=== PATIENT | female | born 1975 | race Caucasian/White ===

== ENCOUNTER 2017-11-11 09:30 | Outpatient (RCR) | payer OTHER, SELFPAY ==
--- NOTE | 2017-11-09 13:27 | HP.PTEVAL_ITS ---
Patient's Visit Information VELIA STEINBERG is a 42 year old F referred to Physical Therapy by Raheem Hendricks MD with a diagnosis of S/P R hip. Date of Evaluation: 11/09/17 Physical Therapist: Ebenezer Valdovinos PT, - Visit Plan Frequency: 1x/Week Duration: 3 Weeks Plan: Follow protocal for MAISHA. R LE stretching and strengthening, balance and proprio, core strengthening, nustep, and HEP - Subjective Subjective: DOS: 11/02/17. Pt reports she had a chronic Hx of R hip pain prior to this procedure. Pt reports the surgeon surgically dislocated her hip, reshaped her femoral head, cleaned out a labral tear, and then put her hip back together. Pt reports she is getting better each day. No R LE T or N at this time. Pt reports she is still sleeping in a recliner as she is not able to sleep in her bed yet. Pt reports she is able to negotiate stairs one at a time as she has 4 [address] into [place] home. 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 1/10 at rest, 5/10 at worst (increased walking) - Pain R hip Pain Intensity (Out of 10): 1 Pain Intensity Range: 5 - Objective Neuro: B LE sensation is WNL to light touch. B patellar tendon reflex= 1/3. MMT : L LE is grossly 5/5 throughout. R LE is grossly 3+/5 throughout. Gait: Pt was able to ambulate greater than 1000 feet with 2 crutches and no difficulty - Goals Goal 1:: Decrease R hip pain x 50% to aid with sleep diff Goal Time Frame: 2-4 Weeks Goal 2:: Increase R hip strength x 1 grade to aid with stair negotiation Goal Time Frame: 2-4 Weeks Goal 3:: Pt will be able to reciprocally negotiate 10 stairs to aid with community ambulation Goal Time Frame: 2-4 Weeks Goal 4:: I with HEP Goal Time Frame: 2-4 Weeks - Rehabilitation Potential Physical Therapy Diagnosis: R hip pain, weakness, and diff with stair negotiation secondary to R hip labral repair and joint debridement Rehabilitation Potential: Good - Anticipated Interventions Patient/Client Instruction: Educate patient on: Condition, Plan of Care For the Purpose of:: To improve self management Therapeutic Exercise to Include: Strength training, Endurance training, Balance training, Gait and locomotor training, Dynamic Lumbar Stabilization For the Purpose of:: To decrease pain, To improve muscle performance and motor function, To increase tolerance to activity/condition/position Cryotherapy (ice pack, ice massage): Yes For the Purpose of:: To decrease pain Thank you for the opportunity to evaluate your patient. For Medicare and Medicare HMO plans, please review the plan of care and approve it. It will need to be FAXED BACK to us at [phone] for Medicare purposes. Please let me know if there are questions or concerns regarding this plan of care. Physician Signature: Date:
--- NOTE | 2017-12-30 07:50 | HP.PT.NRP ---
HP - Discharge Summary (1) - Patient Information VELIA STEINBERG was seen in my office for initial evaluation on 11/09/17. The following Plan of Care was established for this patient: Initial Frequency: 1x/Week Initial Duration: 3 Weeks - Anticipated Interventions Patient/Client Instruction: Educate patient on: Condition, Plan of Care For the Purpose of:: To improve self management Therapeutic Exercise to Include: Strength training, Endurance training, Balance training, Gait and locomotor training, Dynamic Lumbar Stabilization For the Purpose of:: To decrease pain, To improve muscle performance and motor function, To increase tolerance to activity/condition/position Cryotherapy (ice pack, ice massage): Yes For the Purpose of:: To decrease pain This patient was last seen in our office . Pertinent comments regarding their Physical therapy will appear below: Pt was last treated on 11/11/17 for her R MAISHA. Pt has not returned through todays date, and is therefore discontinued at this time. At this point I will be discontinuing this patient from physical therapy. I would be happy to see this patient again in the future if found appropriate by the physician. Thank you! Ebenezer Valdovinos, PT,
== END 2017-11-11 19:00 | disposition home or self-care (01) ==
LOC: PT 09:30
PROVIDERS: Family Provider Family Medicine; PCP Family Medicine; Visit Provider Specialist
DX: M16.11 Unilateral primary osteoarthritis, right hip (principal)
CPT/HCPCS: 97110; 97161

== ENCOUNTER 2019-03-14 04:24 | Emergency (ER) | payer OTHER, SELFPAY ==
[2019-03-14 04:25] VITALS: BP 134/81; PULSE 89; RESP 18; TEMP 36.8; O2SAT 98; BMI 40.4
[2019-03-14] MEDS: DiphenhydrAMINE 50 MG/ML Syringe 25 MG IV (04:53)
[2019-03-14] MEDS: Ketorolac 30 MG/ML Syringe IV (04:54)
[2019-03-14] MEDS: Metoclopramide 10 MG/2 ML Vial IV (04:55)
[2019-03-14] MEDS: 0.9% Normal Saline 1,000 ML 999 ML IV (05:02)
--- NOTE | 2019-03-14 05:21 | ED.DCSUM_ITS ---
- ER Visit Summary Date of Service: 03/14/19 Chief Complaint: Headache History of Present Illness: The patient is a 43 F who presents the emergency department with a headache. She states that it woke her up at 030 0 hours. He has a history of migraines and took her triptan. Unfortunately she vomited shor tly thereafter and is not sure how much absorbed. She describes a headache in frontal nature radiating back on the sides of her head towards her neck. She notes light sensitivity. She has a long history of migraines and would prefer to avoid CT scan if necessary. She denies any loss of sensation of extremities or muscle weakness. No speech difficulties. She denies any visual disturbances. No recent illnesses. No rashes. Physical Examination: Afebrile vital signs are stable Gen: Well-nourished well-developed Head: Normocephalic atraumatic Eyes: Perrl EOMI mild light sensitivity ENT: TMs clear no rhinorrhea moist mucous membranes Neck: Supple no lymphadenopathy no JVD nontender CVS: Regular rate rhythm no murmurs normal S1-S2 Respiratory: No distress clear to auscultation bilaterally chest nontender Abdomen: Soft nontender nondistended normal bowel sounds no masses Back: Nontender Extremity: Nontender no edema Skin: Normal color no rash Neuro: alert orientated ?3 CN II-XII intact normal strength sensation reflexes cerebellar Psych: Normal affect normal mood Emergency Department Course and Treatment: Patient received IV fluids, Toradol, Reglan, and Benadryl. Upon reassessment patient states that she is significantly improved and is happy to call for a ride. Patient advised to return if worsening or concerns Impression: 1. Acute migraine headache This note was generated with [employer] dictation software. It may contain incorrect words, spelling, and punctuation that were not noted in review of the chart prior to signing ED Disposition - Plan for ED Patient: Disposition: Home or Assisted Living Instructions: ED, Migraine (Classical) Referrals: Kyle Roach MD [Primary Care Provider] - As Needed
[2019-03-14 05:53] VITALS: BP 134/67; PULSE 89; RESP 16; O2SAT 96
== END 2019-03-14 06:17 | disposition home or self-care (01) ==
PROVIDERS: Emergency Provider Emergency Medicine; Family Provider Family Medicine; PCP Family Medicine
DX: G43.909 Migraine, unspecified, not intractable, without status migrainosus (principal); E66.9 Obesity, unspecified; Z68.41 Body mass index [BMI] 40.0-44.9, adult
CPT/HCPCS: 96361; 96374; 96375; 99283; J7030; A4216

== ENCOUNTER → 2019-12-14 09:10 | Outpatient (CLI) | payer OTHER, SELFPAY | PROVIDERS: PCP Family Medicine; Referring Provider Family Medicine; Visit Provider Family Medicine | DX: Z20.828 Contact with and (suspected) exposure to other viral communicable diseases (principal) | CPT/HCPCS: 87635; C9803; U0003 ==

== ENCOUNTER → 2023-09-14 | Outpatient (CLI) | payer OTHER, SELFPAY ==
--- NOTE | 2023-09-14 17:20 | RAD_ITS ---
INDICATION: PAIN EXAMINATION/TECHNIQUE: X-RAY - RIGHT XR Foot Min 3 Views 3 VIEWS COMPARISON: FINDINGS: SOFT TISSUES: Mild soft tissue swelling. No radiopaque foreign body. BONES/JOINTS: No acute fracture or subluxation.. Normal alignment. Preservation of the joint space.. No sclerotic or destructive changes observed. RAD/Foot min 3 Views IMPRESSION: No acute bony injury. Electronically Signed: Jarrell Mansfield DO at 19:50 EDT ,
== END | disposition home or self-care (01) ==
LOC: RAD 17:16
PROVIDERS: PCP Family Medicine; Referring Provider Physician Assistant; Visit Provider Physician Assistant
DX: M79.671 Pain in right foot (principal)
CPT/HCPCS: 73630

== ENCOUNTER 2023-12-30 07:25 | Emergency (ER) | payer OTHER, SELFPAY ==
[2023-12-30 07:26] VITALS: BP 128/60; PULSE 91; RESP 16; TEMP 36.1; O2SAT 99; BMI 32.5
--- NOTE | 2023-12-30 07:52 | EDS_ITS ---
HPI History of Present Illness Chief Complaint: Headache Informant: patient Onset/Context/Timing Onset: Today and Hours Timing: Continuous Quality -Headache: Positive for Similar Prior Headaches and Sharp Current Severity: Moderate Maximum Severity: Moderate Associated Symptoms/Injury Associated Symptoms: Positive for Nausea and Photophobia; Negative for Fever, Vomiting, Sore Throat, Sinus Pressure, Numbness, Preceding Aura, Visual Changes, Blurred Vision or Visual Loss Injury - ESTRELLA: Negative for Direct Trauma, Fall or Assault Narrative Narrative: 48-year-old female history of migraine headaches. Awoke this morning around 5 AM with one of her migraine headaches is behind her right eye in the back of her neck. No fever. No trauma. She is on no blood thinners. She took Zofran at home for nausea. Prior similar symptoms: Yes Recent Illness/Hospitalization: No PFSH PFSH Home Medications ?Medication ?Instructions ?Recorded ?Last Taken ?Type citalopram 20 mg tablet 20 mg PO DAILY 03/14/19 Unknown History melatonin 3 mg tablet 6 mg PO QHS 03/14/19 Unknown History rizatriptan 10 mg tablet 10 mg PO PRN PRN Headache 03/14/19 Unknown History Allergy/AdvReac Type Severity Reaction Status Date / Time acetaminophen (From Percocet) Allergy Unknown Verified 12/30/23 07:26 amoxicillin Allergy Hives Verified 12/30/23 07:26 oxycodone (From Percocet) Allergy Unknown Verified 12/30/23 07:26 Penicillins Allergy Hives Verified 12/30/23 07:26 prochlorperazine (From Allergy Unknown Verified 12/30/23 07:26 Compazine) hydrocodone (From [place]) AdvReac Nausea/Vom/ Verified 12/30/23 07:26 Diarrhea Social History Smoking Status: Never smoker ROS ROS ED ROS Narrative Headache. Nausea. Constitutional Constitutional ED: Denies chills or fever(s) Eyes Eyes: Denies blurry vision ENT ENT ED: Denies ear pain Cardiovascular Cardiovascular: Denies chest pain Respiratory/Chest Respiratory/Chest: Denies cough or dyspnea Gastrointestinal Gastrointestinal: Denies abdominal pain Genitourinary Genitourinary ED: Denies dysuria or hematuria Musculoskeletal Musculoskeletal: Denies arthralgias Integumentary Denies abscess Neurologic Neurologic: Denies headache(s) Psychiatric Psychiatric: Denies anxiety Endocrine Endocrinology: Denies polydipsia Hematologic/Lymphatic Hematologic/Lymphatic: Denies easy bleeding Allergic/Immunologic Allergic/Immunologic ED: Denies mouth swelling EXAM Physical Exam Narrative Exam Narrative: 48-year-old female no acute distress sitting upright in bed. Family at bedside. H EENT exam pupils round react to light. Extra motions are intact. No facial droop. No trauma. Nontender. No hematoma. Normal speech. Normal extraocular motions. Neck nontender no lymphadenopathy. No meningismus. Able to touch chin to chest. Lungs clear to auscultation. Heart regular rhythm rate about 90 no murmur. Abdomen soft nontender. Back nontender. Moving all 4 extremities. 5 out of 5 home care chaplain strength. Dorsi plantarflexion intact. Neurologic exam normal. Awake and alert. Fingertip to nose and [id number] within normal limits. Normal rapid hand movements. NIH 0. Const Vital Signs: 12/30/23 07:26 12/30/23 09:26 Temperature 97.0 F L Temperature Source Temporal Pulse Rate 91 71 Respiratory Rate 16 18 Blood Pressure 128/60 H 122/81 H Blood Pressure Mean 82 94 Pulse Ox 99 98 Oxygen Delivery Method Room Air Room Air Positive well nourished and well developed; Negative for obese, cachectic, contractures or unkempt General Appearance ED: well developed and NAD; Negative for unkempt, cachectic, contractures, cyanotic or diaphoretic Nutritional Appearance: Negative for cachectic or obese HEENT Reports moist mucous membranes atraumatic; Negative for trauma, tenderness, temporal artery tenderness or vesicular rash Face and Sinus: Negative for sinus tenderness Eyes PERRL and EOMs intact bilaterally General Eye ED: Negative for pale conjunctiva or scleral icterus Neck no lymphadenopathy, supple, no meningeal signs and no JVD General: Negative for tenderness Resp normal respiratory effort and clear to auscultation bilaterally Effort and Inspection: Negative for retractions Auscultation: Negative for rales, rhonchi, wheezes or diminished lung sounds Cardio regular rate, regular rhythm, S1 normal heart sound, S2 normal heart sound and no murmurs Rate: Negative for bradycardia or tachycardic Rhythm: Negative for abnormal rhythm GI non-tender and non-distended Auscultation: normoactive bowel sounds Palpation: soft; Negative for tender or guarding Back/Spine no CVA tenderness General Back: Negative for CVA tenderness Cervical Spine: Negative for cervical spine tenderness Thoracic Spine / Upper Back: Negative for thoracic spinal tenderness Lumbar Spine / Lower Back: Negative for lumbar spinal tenderness Extremity normal to inspection, full ROM and normal capillary refill General Extremety ED: Negative for edema, tenderness or other findings General Extremity: Negative for edema or other findings Neuro oriented x3 and CN's II-XII intact bilaterally Sensorium / Orientation: awake, alert, oriented to person, oriented to place and oriented to time; Negative for orientation impaired, lethargic or stuporous Coordination / Balance: [id number] test normal and [id number] test normal Speech: speech normal Motor Exam: strength 5/5 throughout Psych mental status grossly normal Appearance: Negative for unkempt Attitude: No agitated Mood & Affect: Negative for depressed, anxious or tearful Skin General Skin Exam: Negative for elasticity normal Lesions: no lesions Rashes: no rashes MDM MDM MDM Narrative Medical decision making narrative: 48-year-old female history of migraines. Clinically seems to be a migraine headache. Normal neurologic exam. I do not think she needs imaging. She will be treated with IV fluids, Toradol, Benadryl and Reglan and reassessed. She has had success with that in the past. Repeat exam at 7 AM patient doing well.Headache is resolved she is feeling much better. She is comfortable being discharged home. Repeat neurologic exam is unchanged and remains normal. History & Record Review Discussion w/independent historian: Patient and Family Discharge Plan Triage Chief Complaint: Headache ED Provider: Clinton Samano Dx/Rx/DC Orders Clinical Impression: Headache, migraine Instructions: ED, Migraine (Classical) Prescriptions: No Action rizatriptan 10 MG tablet 10 mg PO PRN PRN (Reason: Headache) Patient Comments: TAKE 1 TABLET (10 MG) BY ORAL ROUTE ONCE, MAY REPEAT AT 2 HOUR melatonin 3 MG tablet 6 mg PO QHS citalopram 20 MG tablet 20 mg PO DAILY Primary Care Provider: Lazara Pollard Referrals: Kyle Roach MD [Non-Staff] - As Needed Activity Restrictions/Additional Instructions: Plenty of fluids and rest. Motrin and Tylenol as needed. Follow-up with your doctor as needed or return if worse. Print Language: [place] Disposition Disposition: Home, Self Care
[2023-12-30] MEDS: DiphenhydrAMINE 50 MG/ML Syringe IV (08:09)
[2023-12-30] MEDS: 0.9% Normal Saline (1000mL) 1,000 ML 1000 ML IV (08:09)
[2023-12-30] MEDS: Ketorolac 30 MG/ML Syringe IV (08:09)
[2023-12-30] MEDS: Metoclopramide 10 MG/2 ML Vial 5 MG IV (08:11)
[2023-12-30 09:26] VITALS: BP 122/81; PULSE 71; RESP 18; O2SAT 98
== END 2023-12-30 10:12 | disposition home or self-care (01) ==
PROVIDERS: Emergency Provider Emergency Medicine; PCP Physician Assistant; Visit Provider Emergency Medicine
DX: G43.909 Migraine, unspecified, not intractable, without status migrainosus (principal)
CPT/HCPCS: 96361; 96374; 96375; 96376; 99283; J7030; A4216

== ENCOUNTER 2024-01-18 14:50 | Emergency (ER) | payer OTHER, SELFPAY ==
[2024-01-18] VITALS (10 sets, daily range): BP systolic 140–151; BP diastolic 69–88; PULSE 79–94; RESP 11–20; TEMP 36.1–37.3; O2SAT 95–100; BMI 33.4
--- NOTE | 2024-01-18 15:13 | EDS_ITS ---
HPI History of Present Illness Chief Complaint: Shortness of Breath Detail of Chief Complaint: Lightheadedness and shortness of breath Informant: patient Narrative Narrative: Patient presents to the emergency department with complaint of feeling lightheaded and feeling off x 3 days. Patient describes some shortness of breath intermittently and exertional dyspnea. Sometimes she feels short of breath just trying to eat a meal. Patient states that her primary care physician referred her to the emergency department to rule out PE. Patient had surgery on her right lower extremity 6 days ago by physician at [facility] Dr. Phelps. Patient had peroneal tendon repair and osteotomy of her heel. Patient has no other significant medical history. No prior history of PE or DVT. She has been taken aspirin. She has had an intermittent dry cough. Denies sick contacts. PFSH PFSH Home Medications ?Medication ?Instructions ?Recorded ?Last Taken ?Type citalopram 20 mg tablet 20 mg PO DAILY 03/14/19 Unknown History melatonin 3 mg tablet 6 mg PO QHS 03/14/19 Unknown History rizatriptan 10 mg tablet 10 mg PO PRN PRN Headache 03/14/19 Unknown History Allergy/AdvReac Type Severity Reaction Status Date / Time acetaminophen (From Percocet) Allergy Unknown Verified 01/18/24 14:55 amoxicillin Allergy Hives Verified 01/18/24 14:55 oxycodone (From Percocet) Allergy Unknown Verified 01/18/24 14:55 Penicillins Allergy Hives Verified 01/18/24 14:55 prochlorperazine (From Allergy Unknown Verified 01/18/24 14:55 Compazine) hydrocodone (From [place]) AdvReac Nausea/Vom/ Verified 01/18/24 14:55 Diarrhea Surgical History (Updated 01/18/24 @ 15:13 by Di Juarez) Hip joint replacement status S/P tendon repair Social History Smoking Status: Never smoker ROS ROS ED Review of Systems ROS Unobtainable: other Constitutional Constitutional ED: Reports lethargy; Denies chills, fever(s), sweats or weight loss Eyes Eyes: Denies blurry vision, change in vision or diplopia ENT ENT ED: Denies rhinorrhea or sore throat Cardiovascular Cardiovascular: Denies chest pain, orthopnea or racing heartbeat Respiratory/Chest Respiratory/Chest: Reports cough, dyspnea and dyspnea on exertion; Denies orthopnea or sputum Gastrointestinal Gastrointestinal: Denies abdominal pain, diarrhea, nausea or vomiting Genitourinary Genitourinary ED: Denies dysuria, hematuria or urinary frequency Musculoskeletal Musculoskeletal: Denies arthralgias, back pain, myalgias or neck pain Integumentary Denies abscess, Abrasions or rash Neurologic Neurologic: Denies headache(s) or weakness Psychiatric Psychiatric: Denies anxiety, depression or suicidal thoughts Endocrine Endocrinology: Denies polydipsia, polyphagia or polyuria Hematologic/Lymphatic Hematologic/Lymphatic: Denies easy bleeding, easy bruising or lymphadenopathy Allergic/Immunologic Allergic/Immunologic ED: Denies mouth swelling, tongue swelling or urticaria EXAM Physical Exam Const Vital Signs: 01/18/24 14:51 01/18/24 15:14 01/18/24 15:23 Temperature 96.9 F L Temperature Source Temporal Pulse Rate 94 Respiratory Rate 20 H Respiratory Effort Normal Non-Labored Respiratory Depth Normal Respiratory Pattern Normal Blood Pressure 151/88 H Blood Pressure Mean 109 Pulse Ox 100 Oxygen Delivery Method Room Air Room Air 01/18/24 15:50 01/18/24 15:57 01/18/24 16:00 Temperature Temperature Source Pulse Rate 81 88 Respiratory Rate 18 18 17 Respiratory Effort Respiratory Depth Respiratory Pattern Blood Pressure Blood Pressure Mean Pulse Ox 99 100 Oxygen Delivery Method Room Air 01/18/24 16:15 01/18/24 16:30 01/18/24 16:45 Temperature Temperature Source Pulse Rate 80 81 86 Respiratory Rate 12 16 12 Respiratory Effort Respiratory Depth Respiratory Pattern Blood Pressure Blood Pressure Mean Pulse Ox 95 99 99 Oxygen Delivery Method 01/18/24 17:00 Temperature Temperature Source Pulse Rate 79 Respiratory Rate 11 L Respiratory Effort Respiratory Depth Respiratory Pattern Blood Pressure Blood Pressure Mean Pulse Ox 100 Oxygen Delivery Method Positive well nourished and well developed General Appearance ED: well developed and NAD HEENT Reports TM's clear and moist mucous membranes normocephalic and atraumatic; Negative for trauma or tenderness Tympanic Membrane ED: Yes TM's clear Eyes PERRL and EOMs intact bilaterally General Eye ED: Negative for pale conjunctiva or scleral icterus Neck no lymphadenopathy, supple and no JVD General: Negative for tenderness Chest Wall inspection of chest normal and palpation of chest normal Chest: Negative for tenderness Resp normal respiratory effort and clear to auscultation bilaterally Effort and Inspection: Negative for respiratory distress or pain with movement Auscultation: Negative for rhonchi, wheezes or diminished lung sounds Cardio regular rate, regular rhythm, S1 normal heart sound, S2 normal heart sound and no murmurs Peripheral Pulses: pulses 2+ throughout GI normal to inspection, nondistended, normoactive bowel sounds, soft to palpation, non-tender, non-distended and no masses Back/Spine no CVA tenderness and no thoracic nor lumbar tenderness Extremity Extremity Narrative: Right lower extremity-patient has short leg cast in place. Toes are exposed and she has good range of motion in the toes and normal cap refill. General Extremety ED: Negative for edema General Extremity: Negative for edema Neuro oriented x3, CN's II-XII intact bilaterally, no sensory deficits noted and gait normal Sensorium / Orientation: awake, alert, oriented to person, oriented to place and oriented to time Motor Exam: strength 5/5 throughout and strength abnormal Psych mental status grossly normal Skin no rashes or lesions noted and no wounds MDM MDM MDM Narrative Medical decision making narrative: Patient presents with complaint of some lightheadedness and dizziness and intermittent shortness of breath x 3 days. Recent surgery on her right lower extremity. Primary care physician concern for PE. IV line established. EKG obtained arrival showed a sinus rhythm with ventricular rate of 99 bpm with some nonspecific ST changes. CBC with differential, 7.6 with hemoglobin 14.9 and platelet count of 237. Chemistries unremarkable. Troponin was less than 3. COVID flu and RSV testing was negative. Patient had a CTA of the chest which was negative for PE or any acute process. This point etiology of patient's symptoms unclear. She does have history of some anxiety. She has been under increased stress. Advised to follow-up with primary care physician within next 3 to 5 days. Patient to return if increasing shortness of breath, chest pain, hemoptysis, fever, or condition should worsen anyway. Lab Data Attestation: I reviewed the patient's lab results. Labs: Laboratory Results - last 24 hr 01/18/24 15:13 WBC 7.6 RBC 4.96 Hgb 14.9 Hct 44.2 MCV 89.1 MCH 30.0 MCHC 33.7 RDW Std Deviation 41.6 RDW Coeff of Kho[place] 12.7 Plt Count 237 MPV 11.1 Immature Gran % (Auto) 0.500 Neut % (Auto) 69.6 Lymph % (Auto) 22.1 [place] % (Auto) 7.1 Eos % (Auto) 0.0 Baso % (Auto) 0.7 Absolute Neuts (auto) 5.3 Absolute Lymphs (auto) 1.69 Nucleated RBC % 0 Sodium 139 Potassium 3.9 Chloride 105 Carbon Dioxide 27.0 Anion Gap 7 BUN 15 Creatinine 0.89 Estim Creat Clear Calc 88.12 Est GFR (MDRD) Af Amer 88 Est GFR (MDRD) Non-Af 73 BUN/Creatinine Ratio 16.9 Glucose 96 Calcium 9.8 Troponin I High Sens < 3 L Radiography Diagnostic Testing: Clinical Impression(s) from Imaging Studies Chest CTA 01/18/24 15:21 IMPRESSION: No acute findings in the visualized arteries of the chest. Electronically Signed: Chi Anderson MD at 16:23 EDT , Discharge Plan Triage Chief Complaint: Shortness of Breath ED Provider: Vicki Montana Dx/Rx/DC Orders Clinical Impression: Dizziness, Dyspnea Instructions: ED Dizziness, Uncertain Cause, ED Dyspnea Prescriptions: No Action rizatriptan 10 MG tablet 10 mg PO PRN PRN (Reason: Headache) Patient Comments: TAKE 1 TABLET (10 MG) BY ORAL ROUTE ONCE, MAY REPEAT AT 2 HOUR melatonin 3 MG tablet 6 mg PO QHS citalopram 20 MG tablet 20 mg PO DAILY Primary Care Provider: Lazara Pollard Referrals: Lazara Pollard PA [Primary Care Provider] - 3-5 Days Print Language: Estonian Disposition Disposition: Home, Self Care
--- NOTE | 2024-01-18 15:21 | CT_ITS ---
EXAM: CT ANGIOGRAPHY CHEST WITHOUT AND WITH INTRAVENOUS CONTRAST CLINICAL INDICATION: dyspnea, post op day 6 TECHNIQUE: Helically acquired angiography images were obtained of the chest without and with intravenous contrast. This CT exam was performed using one or more of the following dose reduction techniques: automated exposure control, adjustment of the mA and/or kV according to patient size, and/or use of iterative reconstruction technique. MIP reconstructed images were created and reviewed. CONTRAST: IV 100mL [id number] COMPARISON: No relevant prior studies available. FINDINGS: PULMONARY ARTERIES: Unremarkable. Normal in caliber. No evidence of pulmonary embolism. AORTA: Unremarkable. Normal in caliber. No evidence of dissection. GREAT VESSELS OF AORTIC ARCH: Unremarkable. Normal in caliber. No evidence of dissection. LUNGS AND PLEURAL SPACES: Unremarkable. No mass. No consolidation or edema. No pleural effusion or thickening. No pneumothorax. HEART: Unremarkable. Heart size is normal. No pericardial effusion. No significant coronary artery calcifications. MEDIASTINUM: Unremarkable. No mediastinal or hilar adenopathy. Esophagus is unremarkable. No hiatal hernia. THYROID: Unremarkable. No thyroid lesions. BONES/JOINTS: Unremarkable. No suspicious lytic or blastic abnormality. LIVER: There is a 3.1 x 4.4 cm fluid density mass in the liver compatible with a cyst or hemangioma. CT/CTA Chest W/WO Contrast IMPRESSION: No acute findings in the visualized arteries of the chest. Electronically Signed: Chi Anderson MD at 16:23 EDT ,
--- NOTE | 2024-01-18 15:23 | EKG12_ITS ---
Test Reason : SOB Blood Pressure : / mmHG Vent. Rate : 099 BPM Atrial Rate : 099 BPM P-R Int : 108 ms QRS Dur : 078 ms QT Int : 350 ms P-R-T Axes : 024 005 009 degrees QTc Int : 449 ms Sinus rhythm with short IL Nonspecific T wave abnormality Abnormal ECG Confirmed by PRISCILA DIAZ, JOSE ([id number]), assistant film editor LATOYA RICHARDSON ([id number]) on 01/20/2024 2:06:40 PM Referred By: Vicki Montana Confirmed By:JOSE FRANCOIS MD
--- NOTE | 2024-01-18 15:31 | NURSING ---
NO OLD EKGS
[2024-01-18 15:52] LABS: Absolute Lymphocyte Count 1.69 X10^3/uL (0.83-4.51); Absolute Neutrophil Count 5.3 X10^3/uL (2.0-7.7); Basophil# 0.05 X10^3/uL; Basophil% 0.7 % (0-1); Hematocrit 44.2 % (37-47); Hemoglobin 14.9 g/dL (12.0-15.0); Lymphocyte # 1.69 X10^3/ul (0.83-4.51); Lymphocyte % 22.1 % (19-41); Mean Corp Hgb Conc 33.7 g/dL (32-36); Mean Corpuscular Volume 89.1 fL (81-99); Mean Platelet Vol. 11.1 fl (6.2-12.0); Monocyte# 0.54 X10^3/uL; Monocyte% 7.1 % (0-10); NRBC Flagged by Analyzer 0 % (0-5); Neutrophil # 5.32 X10^3/uL (2.7-7.7); Neutrophil % 69.6 % (47-70); Platelet Count 237 K/mm3 (150-450); RBC Distribution Width CV 12.7 % (11.6-14.6); RBC Distribution Width SD 41.6 fl (35.1-43.9); Red Blood Count 4.96 M/mm3 (4.2-5.4); White Blood Count 7.6 K/mm3 (4.4-11.0)
[2024-01-18 16:10] LABS: Anion Gap 7 (5-15); BUN 15 mg/dL (7-18); BUN/Creat Ratio 16.9 RATIO (10-20); Calcium,Total 9.8 mg/dL (8.5-10.1); Chloride 105 mmol/L (98-107); Creatinine, Serum 0.89 mg/dL (0.55-1.02); EST Glomerular Filtration Rate 73 mL/min (>60); Est Glom Filt Rate - Afr Amer 88 mL/min (>60); Estimated Creatinine Clearance 88.12 ml/min; Glucose 96 mg/dL (74-106); Potassium 3.9 mmol/L (3.5-5.1); Sodium Level 139 mmol/L (136-145); Troponin-I HS < 3 pg/mL (3.0-54.0)
--- NOTE | 2024-01-18 16:16 | ED.RN ---
The pt requested she take her home dosage of 1,000 mg Tylenol for post op pain. This RN asked Dr [place] and he agreed that she can take her home dose. This RN watched the patient take 1,000mg of Tylenol at 1615.
== END 2024-01-18 17:24 | disposition home or self-care (01) ==
PROVIDERS: Emergency Provider Emergency Medicine; PCP Physician Assistant; Referring Provider Emergency Medicine; Visit Provider Emergency Medicine
DX: R42 Dizziness and giddiness (principal); R06.00 Dyspnea, unspecified
CPT/HCPCS: 71275; 80048; 84484; 85025; 87631; 93005; 99283; Q9967; A4216